=== PATIENT | female | born 1970 | race Caucasian/White ===

== ENCOUNTER 2019-05-10 20:20 | Emergency (ER) | payer BC ==
[2019-05-10] MEDS ORDERED: Alum Hydroxide/Mag Hydroxide 15 ML, Lidocaine 2% 15 ML PO ONE ×2 (20:56)
[2019-05-10] MEDS ORDERED: Ketorolac 60 MG/2 ML SDV IM ONE (20:56)
[2019-05-10] MEDS ORDERED: Ondansetron 8 MG Tab.DIS PO ONE (20:56)
--- NOTE | 2019-05-10 21:05 | EDM.PDOC ---
ED HPI GENERAL MEDICAL PROBLEM - General Stated Complaint: VOMIT,CHILL,SOB Time Seen by Provider: 05/10/19 20:20 Source of Information: Reports: Patient History Limitations: Reports: No Limitations - History of Present Illness INITIAL COMMENTS - FREE TEXT/NARRATIVE: 49 y.o.w.f came to the ed because of lower back pain and mid upper abd. pain. Pt was vomiting this morning and went to the [facility] in [place], where blood was taken. Pt was advised to see Dr. Cee at about 9 am tomorrow for possible upper GI endoscopy. Pt denied blood or dark stool, no nausea no vomiting of coffee ground material etc. Pt denied dysuria, complained of paravertebral low back pain however. No trauma. No labs were available taken in am at the [facility]. Because of her epigastric pain pt was told she may have on internal bleed, which prompted the pt to the ed. No trauma, no SOB, no CP, no other acute med issues. BP 162/88 Pulse 125 RR 18 Pulse ox 98% on RA temp 36.4 Onset Date: 05/10/19 Onset Time: 08:00 Duration: Hour(s): Location: Reports: Abdomen, Back Quality: Reports: Ache, Burning, Dull Severity: Moderate Improves with: Reports: Rest Worsens with: Reports: Movement Context: Reports: Other Associated Symptoms: Reports: Weakness Back Pain Score (Numeric/FACES): 4 - Related Data Allergies Allergy/AdvReac Type Severity Reaction Status Date / Time No Known Allergies Allergy Verified 05/11/19 01:18 Home Meds: Home Meds Insulin Aspart [NovoLOG] 6 units SQ DAILY 05/11/19 [History] Insulin Glargine,Hum.Rec.Anlog [Toujeo Solostar] 52 units SQ DAILY 05/11/19 [ History] Omeprazole 20 mg PO DAILY 05/11/19 [History] Sucralfate 1 gm PO QID 05/11/19 [History] ED ROS GENERAL - Review of Systems Review Of Systems: See Below Constitutional: Reports: Weakness, Decreased Appetite HEENT: Reports: No Symptoms Respiratory: Reports: No Symptoms Cardiovascular: Reports: No Symptoms Endocrine: Reports: No Symptoms GI/Abdominal: Reports: Abdominal Pain (epigastric), Vomiting (in am) : Reports: No Symptoms Musculoskeletal: Reports: Back Pain Skin: Reports: No Symptoms Neurological: Reports: No Symptoms Psychiatric: Reports: No Symptoms Hematologic/Lymphatic: Reports: No Symptoms Immunologic: Reports: No Symptoms ED EXAM,LOWER BACK PAIN/INJURY - Physical Exam Exam: See Below Exam Limited By: No Limitations General Appearance: Alert, WD/WN, Mild Distress, Moderate Distress Eye Exam: Bilateral Eye: Normal Inspection Ears: Normal External Exam, Normal Canal Nose: Normal Inspection, Normal Mucosa Throat/Mouth: Normal Inspection, Normal Lips, Normal Voice, No Airway Compromise Head: Atraumatic, Normocephalic Neck: Normal Inspection, Supple, Non-Tender, Full Range of Motion Respiratory/Chest: No Respiratory Distress, Lungs Clear, Normal Breath Sounds, No Accessory Muscle Use, Chest Non-Tender Cardiovascular: Normal Peripheral Pulses, Regular Rate, Rhythm, No Edema, No Gallop GI/Abdominal: Normal Bowel Sounds, No Organomegaly, No Abnormal Bruit, No Mass, Pelvis Stable, Tender (epigastric) (Female) Exam: Deferred Rectal (Female) Exam: Deferred Back Exam: Normal Inspection, Full Range of Motion Extremities: Normal Inspection, Normal Range of Motion, Non-Tender, Normal Capillary Refill Neurological: Alert, Normal Mood/Affect, Normal Dorsiflexion, CN II-XII Intact, Normal Gait Psychiatric: Normal Affect, Normal Mood Skin Exam: Warm, Dry, Intact, Normal Color, No Rash Lymphatic: No Adenopathy Course - Vital Signs Text/Narrative:: 49 y.o.w.f came to the ed because of lower back pain and mid upper abd. pain. Pt was vomiting this morning and went to the [facility] in [place], where blood was taken. Pt was advised to see Dr. Cee at about 9 am tomorrow for possible upper GI endoscopy. Pt denied blood or dark stool, no nausea no vomiting of coffee ground material etc. Pt denied dysuria, complained of paravertebral low back pain however. No trauma. No labs were available taken in am at the [facility]. Because of her epigastric pain pt was told she may have on internal bleed, which prompted the pt to the ed. No trauma, no SOB, no CP, no other acute med issues. BP 162/88 Pulse 125 RR 18 Pulse ox 98% on RA temp 36.4 PE: Pale appearing w f with low back and epigastric discomfort, minor Imaging: Not indicated Labs: WBC 15.3K HGB 9.8 HCT 29.3 Plts 735K, Na 133 K 3.5 GFR > 60 BUN 6 Cr 0.9 Gcl 136 Amylase 23 INR 1.11 Impression: elevated WBC, Anemia, gastritis, low back pain. elevated platelets. Tx: Toradol, Zofran/GI cocktail Reexam: Pt felt better, Back pain and abd. pain improved. Pt was told her HGB dropped (?). She did not remember her previous HGB level, however. The [facility] was closed. Pt said she felt now good to go home. Plan: D/C with instructions, F/U with Dr. Cee in am Last Recorded V/S: Last Vital Signs Temp 36.6 C 05/10/19 20:20 Pulse 98 05/10/19 22:00 Resp 18 05/10/19 22:00 BP 152/88 H 05/10/19 22:00 Pulse Ox 98 05/10/19 22:00 - Orders/Labs/Meds Orders: Active Orders 24 hr Category Date Time Status Ice Bag [Ice Therapy] [OM.PC] Routine Oth 05/10/19 20:56 Ordered Labs: Laboratory Tests 05/10/19 05/10/19 05/10/19 Range/Units 21:05 21:05 21:05 WBC 15.3 H (4.5-12.0) X10-3/uL RBC 3.60 (3.23-5.20) x10(6)uL Hgb 9.8 L (11.5-15.5) g/dL Hct 29.3 L (30.0-51.3) % MCV 81.4 (80-96) fL MCH 27.3 L (27.7-33.6) pg MCHC 33.5 (32.2-35.4) g/dL RDW 12.7 (11.5-15.5) % Plt Count 756 H (125-369) X10(3)uL MPV 7.1 L (7.4-10.4) fL Add Manual Diff Yes Neutrophils % (Manual) 83 H (46-82) % Band Neutrophils % 2 (0-6) % Lymphocytes % (Manual) 13 (13-37) % Monocytes % (Manual) 2 L (4-12) % PT (8.7-11.1) INR (0.89-1.13) Sodium 133 L (135-145) mmol/L Potassium 3.5 (3.5-5.3) mmol/L Chloride 95 L (100-110) mmol/L Carbon Dioxide 27 (21-32) mmol/L BUN 6 L (7-18) mg/dL Creatinine 0.9 (0.55-1.02) mg/dL Est Cr Clr Drug Dosing TNP Estimated GFR (MDRD) > 60 (>60) BUN/Creatinine Ratio 6.7 L (9-20) Glucose 174 H (80-116) mg/dL Calcium 9.5 (8.6-10.2) mg/dL Total Bilirubin 0.4 (0.1-1.3) mg/dL Direct Bilirubin 0.12 (0.10-0.20) mg/dL AST 17 (5-25) IU/L ALT 23 (12-36) U/L Alkaline Phosphatase 208 H (56-112) IU/L Total Protein 8.6 H (6.0-8.0) g/dL Albumin 2.4 L (3.5-5.2) g/dL Amylase 23 L (25-115) U/L // Range/Units 21:05 WBC (4.5-12.0) X10-3/uL RBC (3.23-5.20) x10(6)uL Hgb (11.5-15.5) g/dL Hct (30.0-51.3) % MCV (80-96) fL MCH (27.7-33.6) pg MCHC (32.2-35.4) g/dL RDW (11.5-15.5) % Plt Count (125-369) X10(3)uL MPV (7.4-10.4) fL Add Manual Diff Neutrophils % (Manual) (46-82) % Band Neutrophils % (0-6) % Lymphocytes % (Manual) (13-37) % Monocytes % (Manual) (4-12) % PT 10.8 (8.7-11.1) INR 1.11 (0.89-1.13) Sodium (135-145) mmol/L Potassium (3.5-5.3) mmol/L Chloride (100-110) mmol/L Carbon Dioxide (21-32) mmol/L BUN (7-18) mg/dL Creatinine (0.55-1.02) mg/dL Est Cr Clr Drug Dosing Estimated GFR (MDRD) (>60) BUN/Creatinine Ratio (9-20) Glucose (80-116) mg/dL Calcium (8.6-10.2) mg/dL Total Bilirubin (0.1-1.3) mg/dL Direct Bilirubin (0.10-0.20) mg/dL AST (5-25) IU/L ALT (12-36) U/L Alkaline Phosphatase (56-112) IU/L Total Protein (6.0-8.0) g/dL Albumin (3.5-5.2) g/dL Amylase (25-115) U/L Meds: Medications Discontinued Medications Generic Name Dose Route Start Last Admin Trade Name Freq PRN Reason Stop Dose Admin Al Hydroxide/Mg Hydroxide 15 0 ml 05/10/19 20:56 05/10/19 21:32 ml/ Lidocaine HCl 15 ml PO 05/10/19 20:57 30 ml ONETIME ONE Administration Ketorolac Tromethamine 60 mg 05/10/19 20:56 05/10/19 21:31 Toradol IM 05/10/19 20:57 60 mg ONETIME ONE Administration Ondansetron HCl 8 mg 05/10/19 20:56 05/10/19 21:31 Zofran Odt PO 05/10/19 20:57 8 mg ONETIME ONE Administration Departure - Departure Time of Disposition: 22:42 Disposition: Home, Self-Care 01 Condition: Good Clinical Impression: Anemia, Back pain Gastritis Qualifiers: Chronicity: acute - Discharge Information Instructions: Gastritis, Adult, [id number], Anemia Referrals: Chata Blackmon NP [Primary Care Provider] - Forms: ED Department Discharge Additional Instructions: Please cont your current meds, please f/u with Dr. Cee in AM as scheduled, please come back if your symptoms get worse acutely - My Orders Last 24 Hours: My Active Orders 05/10/19 20:56 Ice Bag [Ice Therapy] [OM.PC] Routine - Assessment/Plan Last 24 Hours: My Active Orders 05/10/19 20:56 Ice Bag [Ice Therapy] [OM.PC] Routine
== END 2019-05-10 22:55 | disposition home or self-care (01) ==
LOC: FB.ED 20:20
DX: K29.70 Gastritis, unspecified, without bleeding (principal); M54.5 Low back pain; D72.829 Elevated white blood cell count, unspecified; D64.9 Anemia, unspecified; Z79.4 Long term (current) use of insulin; Z79.899 Other long term (current) drug therapy
CPT/HCPCS: 36415; 80048; 80076; 82150; 85025; 85610; 96372; 99283; A9270; J1885

== ENCOUNTER 2019-05-17 06:45 | Day surgery (SDC) | payer BC ==
[2019-05-17] MEDS ORDERED: Lidocaine 2% 100 MG/5 ML Syringe IVPUSH ONE (06:46)
[2019-05-17] MEDS ORDERED: Midazolam 1 MG/ML 2 ML SDV IV ONE (06:46)
[2019-05-17] MEDS ORDERED: Propofol 200 MG/20 ML SDV IV ONE (06:46)
[2019-05-17] MEDS ORDERED: Lactated Ringers 1,000 ML IV SCH (08:45)
--- NOTE | 2019-05-17 10:04 | PCM.OPNOTE ---
- General Post-Op/Procedure Note Date of Surgery/Procedure: 05/17/19 Operative Procedure(s): egd with bx Findings: gastritis Pre Op Diagnosis: nausea vomiting epigastric abd pain Post-Op Diagnosis: gastritis Anesthesia Technique: MAC Primary Surgeon: Chau Cee Anesthesia Provider: Hanna Cummings ([facility] CRNAS) Pathology: stomach Complications: None Condition: Good Free Text/Narrative:: see dictation
--- NOTE | 2019-05-17 13:01 | OR ---
DATE OF OPERATION: 05/17/2019 SURGEON: Chau Cee MD PROCEDURES PERFORMED: Esophagogastroduodenoscopy with cold forceps biopsy. PREOPERATIVE DIAGNOSES: Nausea, vomiting, and epigastric abdominal pain. POSTOPERATIVE DIAGNOSES: Nausea, vomiting, and epigastric abdominal pain. INDICATIONS FOR PROCEDURE: This is a 49-year-old female who has a history of poorly-controlled diabetes, has had a history of epigastric abdominal discomfort and back pain, as well as nausea and vomiting. She has been on Prilosec as well as Carafate without relief of her symptoms. She was offered and accepted upper endoscopy as part of her workup. DESCRIPTION OF OPERATION: After an excellent IV sedation was administered, the bite block was inserted. The flexible endoscope was passed without difficulty down the patient's esophagus and into the stomach. The stomach was insufflated. Scope was passed through the pylorus, to the second portion of the duodenum, and slowly withdrawn. The following findings were noted. Duodenum was unremarkable. Stomach demonstrated some diffuse gastritis with linear erythema. Multiple biopsies were taken. The mucosa was noted to be friable. These were all submitted in one container. The esophagus was unremarkable. Stomach was deflated. Scope was removed. The patient tolerated the procedure well and was taken to recovery room. We will be starting her on some Reglan and stopping her omeprazole. She will follow up in my clinic in 10 days. /[id number] /SHRUTHIL
== END 2019-05-17 11:00 | disposition home or self-care (01) ==
LOC: FB.SDS 06:45
PROVIDERS: ATTEND Surgery
DX: K29.50 Unspecified chronic gastritis without bleeding (principal); E11.9 Type 2 diabetes mellitus without complications; D64.9 Anemia, unspecified; E78.2 Mixed hyperlipidemia; Z79.4 Long term (current) use of insulin; Z79.82 Long term (current) use of aspirin; Z79.899 Other long term (current) drug therapy; Z98.890 Other specified postprocedural states
CPT/HCPCS: 43239; 81025; 82962; 88305; 88342; J2001; J2250; J2704; J7120

== ENCOUNTER 2021-02-23 07:20 | Day surgery (SDC) | payer BC ==
[~2021-02-23 07:20] MED LIST: Acetaminophen 500 MG Tab PO ONE; Lactated Ringers 1,000 ML IV SCH; Metoclopramide 10 MG/2 ML SDV IVPUSH ONE; Sodium Chloride 0.9% 10 ML Syringe FLUSH PRN
[2021-02-23] MEDS ORDERED: Labetalol 100 MG/20 ML MDV IV ONE (07:21)
[2021-02-23] MEDS ORDERED: Rocuronium 100 MG/10 ML MDV IV ONE (07:21)
[2021-02-23] MEDS ORDERED: Propofol 200 MG/20 ML SDV IV ONE (07:21)
[2021-02-23] MEDS ORDERED: Ondansetron 4 MG/2 ML SDV IVPUSH ONE (07:21)
[2021-02-23] MEDS ORDERED: Ketorolac 30 MG/ML SDV IVPUSH ONE (07:21)
[2021-02-23] MEDS ORDERED: fentaNYL 100 MCG/2 ML SDV IV ONE (07:21)
[2021-02-23] MEDS ORDERED: Lactated Ringers 1,000 ML IV ONE (07:21)
[2021-02-23] MEDS ORDERED: Midazolam 1 MG/ML 2 ML SDV IV ONE (07:21)
[2021-02-23] MEDS ORDERED: Scopolamine 1.5 MG Transdermal Patch TRDERM PRN (07:56)
[2021-02-23] MEDS ORDERED: ceFAZolin 2 GM in Premix Bag 1 BAG IV ONE (08:00)
--- NOTE | 2021-02-23 09:47 | PCM.PN ---
- General Info Date of Service: 02/23/21 - Review of Systems Systems Review Comment:: 51 y/o female wit history of symptomatic cholelithiasis here for cholecystectomy. She is medically stable to proceed. There has been no significant changes to her health status since her recent H and P. I have again reviewed the proposed cholecystectomy with the patient. She agrees to proceed accepting risks. - Patient Data Vitals - Most Recent: Last Vital Signs Temp 98.3 F 02/23/21 07:51 Pulse 86 02/23/21 07:51 Resp 18 02/23/21 07:51 BP 145/83 H 02/23/21 07:51 Pulse Ox 97 02/23/21 07:51 Weight - Most Recent: 178 lb 2.136 oz Lab Results Last 24 Hours: Laboratory Results - last 24 hr 02/23/21 Range/Units 07:30 Urine HCG, Qual Negative (NEGATIVE) Med Orders - Current: Current Medications Lactated Ringer's (Ringers, Lactated) 1,000 mls @ 125 mls/hr IV ASDIRECTED VIOLETA Last Admin: 02/23/21 08:26 Dose: 125 mls/hr Documented by: Scopolamine (Scopolamine 1.5 Mg Transdermal Patch) 1.5 mg TRDERM Q72H PRN PRN Reason: Nausea Last Admin: 02/23/21 09:26 Dose: 1.5 mg Documented by: Sodium Chloride (Sodium Chloride 0.9% 10 Ml Syringe) 10 ml FLUSH ASDIRECTED PRN PRN Reason: Keep Vein Open Discontinued Medications Acetaminophen (Acetaminophen 500 Mg Tab) 1,000 mg PO ONETIME ONE Stop: 02/23/21 07:01 Last Admin: 02/23/21 08:31 Dose: Not Given Documented by: Cefazolin Sodium/Dextrose 2 gm (/ Premix) 50 mls @ 100 mls/hr IV ONETIME ONE Stop: 02/23/21 08:29 Last Admin: 02/23/21 09:27 Dose: 100 mls/hr Documented by: Metoclopramide HCl (Metoclopramide 10 Mg/2 Ml Sdv) 10 mg IVPUSH ONETIME ONE Stop: 02/23/21 07:01 Last Admin: 02/23/21 08:28 Dose: 10 mg Documented by: - Patient Data Lab Results Last 24 hrs: Laboratory Results - last 24 hr 02/23/21 Range/Units 07:30 Urine HCG, Qual Negative (NEGATIVE) Sepsis Event Note - Focused Exam Vital Signs: Vital Signs Temp Pulse Resp BP Pulse Ox 02/23/21 07:51 98.3 F 86 18 145/83 H 97 - Problem List Review Problem List Initiated/Reviewed/Updated: Yes - My Orders Last 24 Hours: My Active Orders 02/23/21 Breakfast Nothing Per Oral Diet [DIET] 02/23/21 06:45 Lactated Ringers [Ringers, Lactated] 1,000 ml IV ASDIRECTED Sodium Chloride 0.9% [Saline Flush] 10 ml FLUSH ASDIRECTED PRN 02/23/21 07:30 Patient Status [ADT] Routine Blood Glucose Check, Bedside [RC] ONETIME Patient to Empty Bladder [RC] ASDIRECTED RT Incentive Spirometry [RC] ASDIRECTED Verify Patient Consent Obtain [RC] ASDIRECTED Peripheral IV Insertion Adult [OM.PC] Routine Sequential Compression Device [OM.PC] Routine - Assessment Assessment:: Symptomatic cholelithiasis - Plan Plan:: Cholecystectomy
[2021-02-23] MEDS ORDERED: Bupivacaine 0.5%/EPINEPHrine 1:200,000 50 ML MDV INJECT ONE (09:51)
--- NOTE | 2021-02-23 11:05 | PCM.OPNOTE ---
- General Post-Op/Procedure Note Date of Surgery/Procedure: 02/23/21 Operative Procedure(s): Laparoscopic Cholecystectomy Findings: Chronically inflamed gallbladder with stones Irregular surface of the liver suggestive of cirrhosis Pre Op Diagnosis: Symptomatic Cholelithiasis Post-Op Diagnosis: Same Anesthesia Technique: General ET Tube Primary Surgeon: Jefe Caba Pathology: gallbladder EBL in mLs: 25 Complications: None Condition: Good
[2021-02-23] MEDS ORDERED: Acetaminophen/HYDROcodone 325-5 MG Tab PO ONE (11:38)
--- NOTE | 2021-02-23 11:48 | OR ---
DATE OF OPERATION: 02/23/2021 SURGEON: Jefe Caba MD PREOPERATIVE DIAGNOSIS: Symptomatic cholelithiasis. POSTOPERATIVE DIAGNOSIS: Symptomatic cholelithiasis. OPERATION PERFORMED: Laparoscopic cholecystectomy. INDICATIONS FOR SURGERY: This 51-year-old female has been having symptoms consistent with gallbladder disease and is noted to have stones in her gallbladder. She comes for cholecystectomy. FINDINGS: Gallbladder shows evidence of chronic inflammation. The tissue adjacent to the gallbladder is somewhat edematous and vascular. The surface of the liver was somewhat irregular, suggestive of the possibility of cirrhosis. Other organs appear normal as viewed laparoscopically. DESCRIPTION OF PROCEDURE: The patient was taken to the operating room. She was given general endotracheal anesthesia and the abdomen was sterilely prepped and draped. A supraumbilical stab wound incision was made. Through this, a Veress needle was inserted and pneumoperitoneum via this needle to a pressure of 15 mmHg was achieved with carbon dioxide. The Veress needle was then replaced with a 12 mm trocar into which the 5 mm variable angled laparoscopic camera was inserted. Under direct visualization, 5 mm trocar was placed in the subxiphoid midline and also 5 mm trocars were placed in 2 areas of the right abdomen. All trocar sites were infiltrated with Marcaine prior to incision. Intra-abdominal inspection was carried out and attention was turned to the gallbladder. The gallbladder was distended and quite tense, and so in order to facilitate its mobilization, the bile is aspirated using a needle attached to suction. This decompressed the gallbladder, so that it could be grasped and mobilized. It was secured with grasping forceps placed through the lateral trocars and retracted superiorly and anteriorly. Fatty tissue overlying the cystic duct was carefully cleared and the cystic duct is isolated and clearly and positively identified including its junction with the gallbladder. Dissection in the triangle of Calot was noted to be hypervascular, and so in order to facilitate clear dissection of the cystic artery, the cystic duct was milked and then doubly clipped and divided near the gallbladder with great care being used to avoid any injury to the common bile duct. Additional dissection in the triangle of Calot then identified the cystic artery which was doubly clipped and divided near the gallbladder. The cautery dissection was then used to free the attachments of the gallbladder to the liver and once it had been completely freed, it was extracted without difficulty through the umbilical trocar site. Reinspection of the gallbladder bed was carried out. Full hemostasis was assured with use of electrocautery and with no sign of bleeding or any other complication. The trocars were removed and the pneumoperitoneum was evacuated. The fascia of the umbilical trocar site was closed with a [id number] 0 Vicryl suture. Wounds were irrigated with Betadine and saline solution. Skin incisions approximated with interrupted 4-0 Vicryl in a subcuticular stitch. Benzoin and Steri-Strips were applied followed by antibiotic ointment and sterile dressings. The patient was awakened, extubated, and taken from the operating room in satisfactory condition. ESTIMATED BLOOD LOSS: 25 mL. COMPLICATIONS: None. PROGNOSIS: Good. /[id number] JANE/MOHSEN
== END 2021-02-23 12:48 | disposition home or self-care (01) ==
LOC: FB.SDS 07:20
PROVIDERS: ATTEND Surgery
DX: K80.10 Calculus of gallbladder with chronic cholecystitis without obstruction (principal); E11.9 Type 2 diabetes mellitus without complications; I10 Essential (primary) hypertension; Z98.890 Other specified postprocedural states; Z79.899 Other long term (current) drug therapy; Z79.4 Long term (current) use of insulin; Z87.891 Personal history of nicotine dependence; Z01.812 Encounter for preprocedural laboratory examination; Z20.822 Contact with and (suspected) exposure to COVID-19
CPT/HCPCS: 00840-QZ; 81025; 82962; 88304; A9270-GY; J0690; J1885; J2250; J2405; J2704; J2765; J3010; J3490; J7120

== ENCOUNTER 2025-07-18 10:56 | Emergency (ER) | payer BC ==
[2025-07-18] MEDS ORDERED: Sodium Chloride 0.9% 10 ML Syringe FLUSH PRN (11:28)
[2025-07-18 11:40] LABS: GLUCOSE,URINE >1000 mg/dL (NORMAL); OCCULT BLOOD,URINE NEGATIVE (NEGATIVE)
[2025-07-18 11:41] LABS: APPEARANCE,URINE CLEAR (CLEAR)
[2025-07-18 11:48] LABS: BASOPHILS ABSOLUTE AUTO 0.0 x10-3/uL (0.0-0.1); BASOPHILS PERCENT AUTO 0.6 % (0.2-1.5); EOSINOPHILS ABSOLUTE AUTO 0.1 x10-3/uL (0.0-0.8); EOSINOPHILS PERCENT AUTO 2.0 % (0.6-8.1); LYMPHOCYTES ABSOLUTE AUTO 2.0 x10-3/uL (1.0-4.4); LYMPHOCYTES PERCENT AUTO 28.9 % (18.4-52.1); MEAN PLATELET VOLUME 8.5 fL (7.1-12.4); MONOCYTES ABSOLUTE AUTO 0.5 x10-3/uL (0.3-1.0); MONOCYTES PERCENT AUTO 7.0 % (4.4-15.7); NEUTROPHILS ABSOLUTE AUTO 4.3 x10-3/uL (1.5-6.3); NEUTROPHILS PERCENT AUTO 61.5 % (30.8-76.2); PLATELET COUNT,PLT 262 x10(3)uL (151-488); RED BLOOD CELL COUNT 4.80 x10(6)uL (3.60-5.20); RED CELL DISTRIBUTION WIDTH 13.0 % (12.3-16.5); WHITE BLOOD CELL COUNT,WBC 6.9 x10-3/uL (3.0-10.3)
[2025-07-18 12:01] LABS: A/G RATIO 0.7; ALANINE AMINOTRANSFERASE,ALT 34 U/L (12-36); ASPARTATE AMNIOTRANSFERASE,AST 19 IU/L (5-25); BILIRUBIN TOTAL 0.6 mg/dL (0.1-1.3); BLOOD UREA NITROGEN,BUN 19 mg/dL (7-18); CARBON DIOXIDE,CO2 27 mmol/L (21-32); CREATININE 1.3 mg/dL (0.55-1.02); EST CRCL DRUG DOSING (CG) 39.58 mL/min; ESTIMATED GFR 49 mL/min (>60); POTASSIUM,K 4.3 mmol/L (3.5-5.3); PROTEIN TOTAL,TP 8.1 g/dL (6.0-8.0); SODIUM,NA 125 mmol/L (135-145)
[2025-07-18 12:19] LABS: CHLORIDE,CL 89 mmol/L (100-110); GLUCOSE RANDOM 708 mg/dL (80-116)
[2025-07-18] MEDS ORDERED: 50% Dextrose in Water 50 ML Syringe IVPUSH PRN (13:15)
[2025-07-18] MEDS: Insulin Regular, Human 100 Units/ML 10 ML Vial IV ONE (13:31)
== END 2025-07-18 14:20 | disposition home or self-care (01) ==
LOC: FB.ED 10:56
DX: E11.65 Type 2 diabetes mellitus with hyperglycemia (principal); E87.1 Hypo-osmolality and hyponatremia; E78.00 Pure hypercholesterolemia, unspecified; I10 Essential (primary) hypertension; Z79.84 Long term (current) use of oral hypoglycemic drugs; Z79.82 Long term (current) use of aspirin; Z79.899 Other long term (current) drug therapy; Z79.4 Long term (current) use of insulin; Z90.49 Acquired absence of other specified parts of digestive tract
CPT/HCPCS: 36415; 80053; 81003; 82947; 83735; 85025; 86140; 96360; 96361; 99284; A9270; J7030; 99283